=== PATIENT | female | born 1980 | race Caucasian/White ===

== ENCOUNTER 2016-09-28 15:12 | Emergency (ER) | payer OTHER ==
--- NOTE | 2016-09-28 15:30 | EDM.PDOC ---
ED HPI GI/ABDOMINAL - General Chief Complaint: Genitourinary Problem Stated Complaint: Pain with Urination Time Seen by Provider: 09/28/16 15:29 Source of Information: Reports: Patient, RN, RN notes reviewed History Limitations: Reports: No limitations - History of Present Illness INITIAL COMMENTS - FREE TEXT/NARRATIVE: Patient presents to the ED at [facility] complaining of dysuria, frequency, and lower right groin pain. Symptoms began about 4 days ago. Patient has a history of kidney stones in the past. Patient states her current symptoms feel similar to the past. Patient also has a history of ovarian cyst. Long-standing complicated [employer], history. Symptom Onset Date: 09/25/16 Timing/Duration: Reports: Waxing/waning Location: RLQ Quality: Reports: burning Severity: mild Context: Denies: sick contact, bad/questionable food, out of country travel, recent surgery Associated Symptoms (-Female): Reports: nausea/vomiting - Related Data Allergies/ADRs: Allergies Allergy/AdvReac Type Severity Reaction Status Date / Time ketorolac [From Toradol] Allergy Rash Verified 09/28/16 15:35 meperidine [From Demerol] Allergy Rash Verified 09/28/16 15:35 prednisone Allergy Rash Verified 09/28/16 15:35 prochlorperazine Allergy Rash Verified 09/28/16 15:35 [From Compazine] tamsulosin [From Flomax] Allergy Rash Verified 09/28/16 15:35 Home Meds: Home Meds . [Unable to Verify Home Med List] 09/28/16 [History] ED ROS GENERAL - Review of Systems Review Of Systems: See Below Constitutional: Denies: fever, chills, weakness Respiratory: Denies: Shortness of Breath, Cough Cardiovascular: Denies: Chest pain, Palpitations GI/Abdominal: Reports: Nausea. Denies: Diarrhea, Vomiting : Reports: dysuria, frequency, pain, urgency Skin: Reports: no symptoms Neurological: Denies: Dizziness, Headache, Numbness, Paresthesia, Tingling ED EXAM, GI/ABD - Physical Exam Exam: See Below Exam Limited By: No limitations General Appearance: alert, no apparent distress Respiratory/Chest: no respiratory distress, lungs clear, normal breath sounds Cardiovascular: regular rate, rhythm GI/Abdominal: normal bowel sounds, soft, tenderness (RLQ) (Female) Exam: Deferred Neurological: alert, oriented Skin Exam: Warm, Dry, Intact, Normal color, No rash Course - Vital Signs Last Recorded V/S: Last Vital Signs Temp 37.7 C 09/28/16 15:37 Pulse 82 09/28/16 15:37 Resp 16 09/28/16 15:37 BP 171/106 H 09/28/16 15:37 Pulse Ox 98 09/28/16 15:37 - Orders/Labs/Meds Orders: Active Orders 24 hr Category Date Time Status Abdomen Pelvis wo Cont [CT] Stat Exams 09/28/16 15:37 Taken Labs: Laboratory Tests 09/28/16 09/28/16 09/28/16 Range/Units 15:36 16:04 16:04 WBC 10.1 H (4.0-10.0) x10^3/uL RBC 4.56 (4.00-5.50) x10^6/uL Hgb 11.9 L (12.0-16.0) g/dL Hct 37.0 (33.0-47.0) % MCV 81.1 (78.0-93.0) fL MCH 26.1 (26.0-32.0) pg MCHC 32.2 (32.0-36.0) g/dL RDW Coeff of Susan 15.9 H (10.0-15.0) % Plt Count 377 (130-400) x10^3/uL Add Manual Diff Yes Neutrophils % (Manual) 62 (50-80) % Lymphocytes % (Manual) 32 (25-50) % Monocytes % (Manual) 4 (2-11) % Eosinophils % (Manual) 2 (0-4) % Platelet Estimate Adequate Hypochromasia 1+ slight H Sodium 142 (136-145) mmol/L Potassium 3.4 L (3.5-5.1) mmol/L Chloride 105 (98-107) mmol/L Carbon Dioxide 26 (21-32) mmol/L BUN 4 L (7-18) mg/dL Creatinine 0.8 (0.55-1.02) mg/dL Est Cr Clr Drug Dosing 88.32 mL/min Estimated GFR (MDRD) > 60 Glucose 127 H (74-106) mg/dL Calcium 8.2 L (8.5-10.1) mg/dL Urine Color Light yellow (YELLOW) Urine Appearance Slightly cloudy H (CLEAR) Urine pH 8.5 H (5.0-8.0) Ur Specific [place] 1.015 Urine Protein Negative (NEGATIVE) mg/dL Urine Glucose (UA) Negative (NEGATIVE) mg/dL Urine Ketones Negative (NEGATIVE) mg/dL Urine Occult Blood Trace-intact H (NEGATIVE) Urine Nitrite Negative (NEGATIVE) Urine Bilirubin Negative (NEGATIVE) Urine Urobilinogen 0.2 (0.2) EU/dL Ur Leukocyte Esterase Negative (NEGATIVE) Urine RBC 5-10 H (NOT SEEN) /HPF Urine WBC 0-5 (NOT SEEN) /HPF Ur Squamous Epith Cells Few H (NEGATIVE) /HPF Ur Renal Epithelial Cell Occasional H (NEGATIVE) /HPF Urine Bacteria Few H (NEGATIVE) /HPF Urine Mucus Few H (NEGATIVE) /LPF Meds: Medications Discontinued Medications Generic Name Dose Route Start Last Admin Trade Name Freq PRN Reason Stop Dose Admin Sodium Chloride 1,000 mls @ 999 mls/hr 09/28/16 16:00 Normal Saline IV ASDIRECTED [facility], 1928–1983 Oxycodone HCl 10 mg 09/28/16 17:19 09/28/16 17:36 Oxycontin PO 09/28/16 17:20 Not Given ONETIME ONE Oxycodone HCl 5 mg 09/28/16 17:27 09/28/16 17:35 Oxycodone PO 09/28/16 17:28 5 mg ONETIME ONE Administration Sodium Chloride 10 ml 09/28/16 15:45 Saline Flush FLUSH ASDIRECTED PRN Keep Vein Open - Re-Assessments/Exams Free Text/Narrative Re-Assessment/Exam: 09/28/16 18:04 Second call placed to [facility] for CT read/report; scan had not been read yet, will continue to wait Departure - Departure Time of Disposition: 18:16 Disposition: Home, Self-Care 01 Condition: good Clinical Impression: Dysuria, Hematuria, Right groin pain Referrals: PCP,Not In Area [Primary Care Provider] - Forms: ED Department Discharge Additional Instructions: 1. Take well hydrated and rest; drink lots of water to keep flushed 2. CT scan of abdomenpelvis does not show any kidney stones 3. See your Primary as symptoms warrant - Problem List Review Problem List Initiated/Reviewed/Updated: Yes - My Orders Last 24 Hours: My Active Orders 09/28/16 15:37 Abdomen Pelvis wo Cont [CT] Stat - Assessment/Plan Last 24 Hours: My Active Orders 09/28/16 15:37 Abdomen Pelvis wo Cont [CT] Stat
[2016-09-28] MEDS ORDERED: Sodium Chloride 0.9% 10 ML Syringe FLUSH PRN (15:45)
[2016-09-28 15:48] VITALS: BP 171/106
[2016-09-28] MEDS ORDERED: Sodium Chloride 0.9% 1,000 ML IV SCH (16:00)
[2016-09-28 16:24] LABS: CHLORIDE,CL 105 mmol/L (98-107); SODIUM,NA 142 mmol/L (136-145)
[2016-09-28] MEDS ORDERED: oxyCODONE ER 10 MG TAB.ER PO ONE (17:19)
[2016-09-28] MEDS ORDERED: oxyCODONE 5 MG Tab PO ONE (17:27)
== END 2016-09-28 18:27 | disposition home or self-care (01) ==
LOC: VM.ED 15:12
DX: R10.31 Right lower quadrant pain (principal); R31.9 Hematuria, unspecified; R30.0 Dysuria; Z88.8 Allergy status to other drugs, medicaments and biological substances
CPT/HCPCS: 36415; 74176; 80048; 81001; 85025; 99284; A9270